=== PATIENT | female | born 1995 | race Caucasian/White ===

== ENCOUNTER 2022-07-02 19:06 | Emergency (ER) | payer OTHER, SELFPAY ==
--- NOTE | ~2022-07-02 | US_ITS ---
EXAMINATION: US OBSTETRICAL ULTRASOUND CLINICAL INFORMATION: Abdominal pain, positive beta hCG COMPARISON: None. LMP: 05/12/2022. Gestational age by maternal dates is 7 weeks 3 days. Estimated date of delivery by maternal dates is 02/16/2023. TECHNIQUE: Sonographic evaluation of the pelvis was performed transabdominally and transvaginally. FINDINGS: Uterus measures 9.1 x 5.1 x 5.2 cm. There is an anechoic focus along the endometrium measuring 1.2 x 0.4 x 0.8 cm which may represent a gestational sac, though no internal yolk sac or pole is seen at this time which could be due to the early phase of . If this does represent a gestational sac, mean sac diameter is 0.8 cm which corresponds to gestational age of 5 weeks 3 days (estimated date of delivery 03/02/2023). There is an adjacent small fluid collection measuring up to 0.4 cm which may indicate perigestational hemorrhage. The right ovary measures 3.8 x 1.8 x 2.4 cm and appears unremarkable. The left ovary measures 4.0 x 2.1 x 2.5 cm and contains a probable complex cyst measuring up to 2.0 cm, favoring a corpus luteal cyst. Doppler evaluation demonstrates normal-appearing arterial and venous waveforms in both ovaries. No adnexal mass is seen. Trace free fluid is noted. US/US OB <= 14 weeks fetus IMPRESSION: 1. Anechoic intrauterine focus which may represent a gestational sac, though no internal yolk sac or pole is seen at this time. Mean diameter corresponds to gestational age of 5 weeks 3 days. Short-term sonographic follow-up is recommended to assess for development of a pole. 2. Adjacent small fluid collection measuring up to 0.4 cm which may indicate perigestational hemorrhage. Attention on follow-up recommended. 3. No adnexal mass identified. 4. Trace nonspecific pelvic free fluid.
--- NOTE | ~2022-07-02 | US_ITS ---
EXAMINATION: US OBSTETRICAL ULTRASOUND CLINICAL INFORMATION: Abdominal pain, positive beta hCG COMPARISON: None. LMP: 05/12/2022. Gestational age by maternal dates is 7 weeks 3 days. Estimated date of delivery by maternal dates is 02/16/2023. TECHNIQUE: Sonographic evaluation of the pelvis was performed transabdominally and transvaginally. FINDINGS: Uterus measures 9.1 x 5.1 x 5.2 cm. There is an anechoic focus along the endometrium measuring 1.2 x 0.4 x 0.8 cm which may represent a gestational sac, though no internal yolk sac or pole is seen at this time which could be due to the early phase of . If this does represent a gestational sac, mean sac diameter is 0.8 cm which corresponds to gestational age of 5 weeks 3 days (estimated date of delivery 03/02/2023). There is an adjacent small fluid collection measuring up to 0.4 cm which may indicate perigestational hemorrhage. The right ovary measures 3.8 x 1.8 x 2.4 cm and appears unremarkable. The left ovary measures 4.0 x 2.1 x 2.5 cm and contains a probable complex cyst measuring up to 2.0 cm, favoring a corpus luteal cyst. Doppler evaluation demonstrates normal-appearing arterial and venous waveforms in both ovaries. No adnexal mass is seen. Trace free fluid is noted. US/US OB transvaginal IMPRESSION: 1. Anechoic intrauterine focus which may represent a gestational sac, though no internal yolk sac or pole is seen at this time. Mean diameter corresponds to gestational age of 5 weeks 3 days. Short-term sonographic follow-up is recommended to assess for development of a pole. 2. Adjacent small fluid collection measuring up to 0.4 cm which may indicate perigestational hemorrhage. Attention on follow-up recommended. 3. No adnexal mass identified. 4. Trace nonspecific pelvic free fluid.
[2022-07-02 19:10] VITALS: BP 100/48; BP 115/55; PULSE 62; PULSE 68; RESP 22; TEMP 36.6; O2SAT 100; BMI 18.2
[2022-07-02 19:32] LABS: MANUAL DIFF FLAG NO
[2022-07-02 19:36] LABS: Basophils Percent Auto 0.4 % (0-2); Eosinophils Percent Auto 0.1 % (0-4); Hematocrit 36.1 % (37.0-47.0); Hemoglobin 12.4 g/dl (12.0-16.0); Imm Gran Abs Auto 0.04 X10*3/uL (0.00-0.03); Imm Gran Pct Auto 0.4 % (0.0-0.4); Lymphocytes Absolute Auto 2.2 X10*3/uL (1.2-4.9); Lymphocytes Percent Auto 23.5 % (20-40); Mean Corpuscular HGB Conc 34.3 g/dl (31.0-35.0); Mean Corpuscular Hemoglobin 30.3 pg (27.0-33.0); Mean Corpuscular Volume 88.3 fL (80.0-98.0); Mean Platelet Volume 9.8 fL (9.4-12.3); Monocytes Absolute Auto 0.6 X10*3/uL (0.1-1.2); Neutrophils Absolute Auto 6.6 x10*3/uL (2.0-8.3); Neutrophils Percent Auto 69.6 % (45-73); Platelet Count 344 X10*3/uL (160-400); Red Blood Count 4.09 X10*6/uL (4.20-5.50); Red Cell Distribution Width 12.3 % (11.0-16.0); White Blood Count 9.5 X10*3/uL (4.8-10.8)
[2022-07-02 19:49] VITALS: BP 103/52; PULSE 44; RESP 15; O2SAT 97
[2022-07-02 20:03] LABS: Alanine Aminotransferase 19 U/L (0-31); Albumin Level 4.7 g/dL (3.5-5.0); Alkaline Phosphatase 50 U/L (39-117); Anion Gap 17 (12-20); Aspartate Amino Transferase 34 U/L (5-31); Bilirubin Direct 0.4 mg/dL (0.0-0.5); Bilirubin Total 2.6 mg/dL (0.0-1.0); Blood Urea Nitrogen 11 mg/dL (9-16); Calcium 10.1 mg/dL (8.4-10.2); Carbon Dioxide 19 mmol/L (22-29); Chloride 105 mmol/L (96-108); Creatinine Clr Calc Pharmacy 88.7; Estimated Glomerular Filt Rate > 60; Glucose Random 149 mg/dL (60-115); Potassium 4.4 mmol/L (3.3-5.1); Sodium 137 mmol/L (135-145); Total Protein 7.9 g/dL (6.5-8.0)
[2022-07-02 20:17] VITALS: BP 107/66; PULSE 43; RESP 17; O2SAT 99
--- NOTE | 2022-07-02 20:31 | PC.NURSE ---
late entry: Pt BIBA, actively vomiting very small amounts of brown mucous like liquid. Pt changed over into hospital gown, placed on monitor (pt bradycardic in 40s-50s), EKG completed (MD Randa manzano). This RN placed 20g IV in RAC and began 1L NS due to pts blood pressure being low 100s/50s. aware at this time. Pt no longer vomiting, preliminary blood work completed at this time
[2022-07-02 20:43] VITALS: PULSE 49
--- NOTE | 2022-07-02 21:21 | ED_ITS ---
HPI - Nausea/Vomiting/Diarrhea General Chief complaint: Nausea/Vomiting/Diarrhea Stated complaint: N/V/D SINCE T-1 PER EMS Time Seen by Provider: 07/02/22 21:09 Source: patient Mode of arrival: EMS Limitations: no limitations History of Present Illness HPI Narrative: 26-year-old female who presents emergency department for evaluation of nausea vomiting abdominal pain diarrhea. Patient states that she became ill this morning at 08:00 hours. She states she developed nausea and vomited at least 7- 8 times throughout the day. She also developed abdominal pain. She points to her epigastric area when asked to localize the pain. She describes the pain is a squeezing sensation which is constant and 8/10 at its worst. She states she has also developed for diarrheal stools. There was no blood in the emesis or the diarrhea. The patient denied fever but states she had shaking chills. She denied rhinorrhea, sore throat, cough, chest pain, shortness of breath. Patient states this is her 1st episode of these symptoms. Patient does smoke marijuana multiple times a day but has not had any episodes of cyclic vomiting syndrome. Related Data Previous Rx's Medication Instructions Recorded promethazine 25 mg rectal 25 mg NV Q6H PRN nausea and 07/03/22 suppository (Promethegan) vomiting #20 ea Allergies Allergy/AdvReac Type Severity Reaction Status Date / Time No Known Allergies Allergy Verified 07/02/22 20:39 Review of Systems Review of Systems: Yes all other systems are reviewed and are negative [facility] Past Medical History [facility] Narrative: Past medical history: None. Past surgical history: None social history: She denies tobacco use. She denies alcohol use. She smokes marijuana multiple times daily. Social History Social History Alcohol intake: current Alcohol intake frequency: holidays/special occasions only Smoked in Last 30 Days: No Use of substances other than those prescribed or required for medical reasons: Yes Substance Use Type: Marijuana Substance Use Frequency: Weekly Substance Use Frequency Other:: 1 day ago Last Used Substance: Days (ago) Any prior treatment program specific to substance use: No Advance Directives: No Advance Directives Information Provided: Yes Patient : No Physical Exam Vital Signs: Vital Signs: Last Vital Signs Temp 98.4 F 07/02/22 22:00 Pulse 67 07/02/22 23:38 Resp 16 07/02/22 23:38 BP 99/49 L 07/02/22 23:38 Pulse Ox 99 07/02/22 23:38 O2 Del Method 07/02/22 23:38 BMI result Body Mass Index 18.2 Const: Other: Awake, alert, female patient, she appears to be in distress secondary to her nausea, she is dry heaving, she also appears to be in distress secondary to her abdominal pain HEENT: Head: Yes normal to inspection, Yes normocephalic and Yes atraumatic Ears: external ears normal General nose exam: Normal external nose present Face and sinus: Yes normal facial exam Mouth: Normal oral and palatal mucosa present Throat: Yes posterior oropharynx normal Eyes: General: appearance normal, both eyes and all related structures Pupils: Equal, round and reactive pupils present Neck: Neck: Yes normal visual inspection, Yes no lymphadenopathy, Yes trachea midline and Yes supple Chest: Chest palpation & inspection: normal inspection of the chest and normal palpation of entire chest wall Resp: Effort & Inspection: normal respiratory effort and able to speak in complete sentences Auscultation: clear to auscultation bilaterally Cardio: Rate: regular rate Rhythm: regular rhythm Heart sounds: S1 normal heart sound present, S2 normal heart sound present and no murmurs GI: Other: Patient has [id number]-gmpeltdy epigastric tenderness, normoactive bowel sounds, no rebound : General: Yes no CVA tenderness Back/Spine/Pelvis: Back: no CVA tenderness Skin: General skin exam: no rashes or lesions noted Neuro: Cranial nerves: Yes CN's II-XII intact bilaterally and Yes Equal, round and reactive pupils present Cognition (Neuro): normal cognition Motor exam (neuro): 5/5 motor strength present throughout Extrem: General: Yes normal to inspection Psych: Appearance: grossly normal Speech and movement: Normal speech and movement present Attitude: cooperative Medications Administered Discontinued Medications Generic Name Dose Route Start Last Admin Trade Name Freq PRN Reason Stop Dose Admin Diphenhydramine HCl 50 mg 07/02/22 21:21 07/02/22 21:41 Diphenhydramine Hcl 50 Mg/Ml Vial IVPUSH 07/02/22 21:22 50 mg ONCE STA Administration Sodium Chloride 1,000 mls @ 999 mls/hr 07/02/22 21:21 07/02/22 22:53 Ns IV 07/02/22 22:21 Infused .Q1H1M STA Infusion Lactated Ringer's 1,000 mls @ 999 mls/hr 07/02/22 23:45 07/03/22 00:46 Lr IV 07/03/22 00:45 Infused .Q1H1M DORIS Infusion Ketorolac Tromethamine 15 mg 07/02/22 21:21 07/02/22 21:41 Ketorolac Tromethamine 15 Mg/Ml Vial IVPUSH 07/02/22 21:22 15 mg ONCE STA Administration Metoclopramide HCl 10 mg 07/02/22 21:21 07/02/22 21:41 Metoclopramide Hcl 10 Mg/2 Ml Vial IVPUSH 07/02/22 21:22 10 mg ONCE STA Administration Medical Decision Making Medical Decision Making MDM Narrative: 26-year-old female who presents emergency department for evaluation of nausea, vomiting, diarrhea and abdominal pain which started this morning. The patient he states she does smoke marijuana multiple times daily but she has never had any episodes of cyclic vomiting syndrome. Review of systems was positive for chills but no other symptoms. On presentation she does appear to be in distress secondary to her nausea, dry heaves and abdominal discomfort. Vital signs initially did reveal an elevated respiratory rate of 22. Laboratory evaluation was ordered to include CBC, BMP, liver panel, urinalysis, urine , COVID, flu, RSV. Patient was treated with normal saline IV x2 L, Reglan 10 mg IV and Benadryl 50 mg IV. 2127: My independent interpretation patient's laboratory evaluation as follows. CBC was normal. CO2 was low 19, glucose elevated 149, total bilirubin is elevated at 2.6, direct bilirubin is only 0.4 suggesting this is not caused by biliary obstruction lipase is pending. COVID-19, RSV and influenza pending. Urinalysis/urine pending collection. 2359: Urine was positive, urinalysis was unremarkable. The patient's quantitative beta-hCG came back at 22,466. This makes the patient a with a 5-year-old child, her last menstrual period was 05/12/[address] her gestation age at 7 weeks and 2 days. Patient is feeling significantly better after the above treatment, she has no significant abdominal tenderness however given the amount of abdominal pain she was experiencing earlier I will order OB ultrasound less than 14 weeks and vaginal ultrasound. Patient's blood type is O-positive. 0122: The patient's ultrasound revealed a yolk sac with a gestational age of 5 weeks and 3 days which is less than predicted based on her LMP. The radiologist did adjacent small fluid collection measuring 0.4 cm which may indicate pre gestational hemorrhage. I did discuss these findings with the patient. Patient initially did get some improvement with the above treatment but her nausea came back and she was ordered to get a Phenergan suppository 25 mg per rectum . She will be discharged home with a prescription Phenergan suppositories 25 mg p.r. q.6 hours as needed. Differential Diagnosis Differential diagnosis includes but is not limited to cyclic vomiting syndrome, gastroenteritis, , ectopic , ovarian cyst ovarian torsion Lab Data [facility] Lab Attestation statement: I reviewed the patient's lab results. Please see [facility] for discussion 07/02/22 19:28 07/02/22 19:28 Labs: Lab Results 07/02/22 07/02/22 07/02/22 Range/Units 19:28 19:28 21:16 WBC 9.5 (4.8-10.8) X10*3/uL RBC 4.09 L (4.20-5.50) X10*6/uL Hgb 12.4 (12.0-16.0) g/dl Hct 36.1 L (37.0-47.0) % MCV 88.3 (80.0-98.0) fL MCH 30.3 (27.0-33.0) pg MCHC 34.3 (31.0-35.0) g/dl RDW 12.3 (11.0-16.0) % Plt Count 344 (160-400) X10*3/uL MPV 9.8 (9.4-12.3) fL Immature Gran % (Auto) 0.4 (0.0-0.4) % Neut % (Auto) 69.6 (45-73) % Lymph % (Auto) 23.5 (20-40) % [place] % (Auto) 6.0 (2-11) % Eos % (Auto) 0.1 (0-4) % Baso % (Auto) 0.4 (0-2) % Lymph # (Auto) 2.2 (1.2-4.9) X10*3/uL [place] # (Auto) 0.6 (0.1-1.2) X10*3/uL Eos # (Auto) 0.0 (0.0-0.4) X10*3/uL Baso # (Auto) 0.0 (0.0-0.2) X10*3/uL Abs Immat Gran (auto) 0.04 H (0.00-0.03) X10*3/uL Absolute Neuts (auto) 6.6 (2.0-8.3) x10*3/uL Absolute Nucleated RBC 0.000 (0.0-0.012) X10*3/uL Nucleated RBC % (auto) 0.0 (0.0-0.2) /100WBC Sodium 137 (135-145) mmol/L Potassium 4.4 (3.3-5.1) mmol/L Chloride 105 (96-108) mmol/L Carbon Dioxide 19 L (22-29) mmol/L Anion Gap 17 (12-20) BUN 11 (9-16) mg/dL Creatinine 0.71 (0.5-1.4) mg/dL Estim Creat Clear Calc 88.7 Estimated GFR > 60 Random Glucose 149 H (60-115) mg/dL Calcium 10.1 (8.4-10.2) mg/dL Total Bilirubin 2.6 H (0.0-1.0) mg/dL Direct Bilirubin 0.4 (0.0-0.5) mg/dL AST 34 H (5-31) U/L ALT 19 (0-31) U/L Alkaline Phosphatase 50 (39-117) U/L Total Protein 7.9 (6.5-8.0) g/dL Albumin 4.7 (3.5-5.0) g/dL Lipase 12 (8-78) U/L Beta HCG, Quant 61644 mIU/mL Urine Color Urine Appearance Urine pH (5.0-9.0) Ur Specific [place] (1.005-1.025) Urine Protein (Neg-Trace) mg/dL Urine Glucose (UA) (Negative) mg/dL Urine Ketones (Negative) mg/dL Urine Blood (Negative) Urine Nitrite (Negative) Ur Leukocyte Esterase (Negative) Urine RBC (0-2) /HPF Urine WBC (0-5) /HPF Ur Squamous Epith Cells (0-2) /HPF Urine Bacteria (None Seen) Hyaline Casts (0-2) /LPF Urine Test POSITIVE H (NEGATIVE) Influenza Type A (PCR) (Negative) Influenza Type B (PCR) (Negative) RSV RNA Qual (PCR) (Negative) SARS-CoV-2 RNA (RT-PCR) (Negative) Blood Type 07/02/22 07/02/22 07/02/22 Range/Units 21:16 21:50 22:16 WBC (4.8-10.8) X10*3/uL RBC (4.20-5.50) X10*6/uL Hgb (12.0-16.0) g/dl Hct (37.0-47.0) % MCV (80.0-98.0) fL MCH (27.0-33.0) pg MCHC (31.0-35.0) g/dl RDW (11.0-16.0) % Plt Count (160-400) X10*3/uL MPV (9.4-12.3) fL Immature Gran % (Auto) (0.0-0.4) % Neut % (Auto) (45-73) % Lymph % (Auto) (20-40) % [place] % (Auto) (2-11) % Eos % (Auto) (0-4) % Baso % (Auto) (0-2) % Lymph # (Auto) (1.2-4.9) X10*3/uL [place] # (Auto) (0.1-1.2) X10*3/uL Eos # (Auto) (0.0-0.4) X10*3/uL Baso # (Auto) (0.0-0.2) X10*3/uL Abs Immat Gran (auto) (0.00-0.03) X10*3/uL Absolute Neuts (auto) (2.0-8.3) x10*3/uL Absolute Nucleated RBC (0.0-0.012) X10*3/uL Nucleated RBC % (auto) (0.0-0.2) /100WBC Sodium (135-145) mmol/L Potassium (3.3-5.1) mmol/L Chloride (96-108) mmol/L Carbon Dioxide (22-29) mmol/L Anion Gap (12-20) BUN (9-16) mg/dL Creatinine (0.5-1.4) mg/dL Estim Creat Clear Calc Estimated GFR Random Glucose (60-115) mg/dL Calcium (8.4-10.2) mg/dL Total Bilirubin (0.0-1.0) mg/dL Direct Bilirubin (0.0-0.5) mg/dL AST (5-31) U/L ALT (0-31) U/L Alkaline Phosphatase (39-117) U/L Total Protein (6.5-8.0) g/dL Albumin (3.5-5.0) g/dL Lipase (8-78) U/L Beta HCG, Quant mIU/mL Urine Color Yellow Urine Appearance Clear Urine pH 6.0 (5.0-9.0) Ur Specific [place] >= 1.030 H (1.005-1.025) Urine Protein 30 (1+) H (Neg-Trace) mg/dL Urine Glucose (UA) Negative (Negative) mg/dL Urine Ketones >=160 (Negative) mg/dL Urine Blood Negative (Negative) Urine Nitrite Negative (Negative) Ur Leukocyte Esterase Negative (Negative) Urine RBC 0-2 (0-2) /HPF Urine WBC 0-5 (0-5) /HPF Ur Squamous Epith Cells 3-5 (0-2) /HPF Urine Bacteria Trace (None Seen) Hyaline Casts 0-2 (0-2) /LPF Urine Test (NEGATIVE) Influenza Type A (PCR) NEGATIVE (Negative) Influenza Type B (PCR) NEGATIVE (Negative) RSV RNA Qual (PCR) NEGATIVE (Negative) SARS-CoV-2 RNA (RT-PCR) NEGATIVE (Negative) Blood Type O Positive Radiology Impression Discussion of test interpretation with radiology: I have reviewed the radiologist's reading. Radiologist Impression: US OB transvaginal IMPRESSION: 1.? Anechoic intrauterine focus which may represent a gestational sac, though no internal yolk sac or pole is seen at this time. Mean diameter corresponds to gestational age of 5 weeks 3 days. Short-term sonographic follow-up is recommended to assess for development of a pole. 2.? Adjacent small fluid collection measuring up to 0.4 cm which may indicate perigestational hemorrhage. Attention on follow-up recommended. 3.? No adnexal mass identified. 4.? Trace nonspecific pelvic free fluid. Dictated By: Julio Godoy MD Signed By: <Electronically signed by Julio Godoy MD in [place] 07/03/22 0115 Discharge Plan Discharge Clinical Impression: Intrauterine , Abdominal pain affecting , Vomiting, Acute dehydration Patient Disposition: Home, Self-Care Instructions: Threatened Miscarriage (ED), Abdominal Pain in (ED) Additional Instructions: Your urine test was positive. Your blood test (quantitative beta-hCG) was positive at 22,466. The ultrasound revealed a single in the uterus measuring 5 weeks and 3 days which is slightly smaller than the predicted 7 weeks and 2 days based on y our last menstrual period of 05/12/2022. There was small amount of blood noted around the which could be normal or could represent an early miscarriage. For nausea and vomiting use Phenergan (promethazine) suppositories 25 mg, 1 inserted in your rectum every 6 hours as needed. Take Tylenol (acetaminophen) 500 mg pills, 2 pills every 4 to 6 hours as needed for pain. Follow-up with our on-call OBGYN in 1 week. Prescriptions: New promethazine [Promethegan] 25 mg suppository 25 mg NV Q6H PRN (Reason: nausea and vomiting) Qty: 20 0RF Referrals: Kristopher Crabtree MD [Physician] - 1 week (Abdominal pain, single intrauterine 5 weeks 3 days, small amount of pre gestational hemorrhage, , LMP 05/12/2022)
[2022-07-02 21:29] LABS: Appearance Urine Clear; Color Urine Yellow; Glucose Urine UA Negative (Negative); Leukocyte Esterase Urine Negative (Negative); Nitrite Urine Negative (Negative); Specific Gravity - Urine >= 1.030 (1.005-1.025); UMIC TRIGGER UACC YES; Urine Blood Negative (Negative); Urine Ketones >=160 mg/dL (Negative); Urine Protein 30 (1+) mg/dL (Neg-Trace)
[2022-07-02 21:31] LABS: Bacteria Urine Trace (None Seen); Hyaline Casts Urine 0-2 /LPF (0-2); RBC Urine 0-2 /HPF (0-2); UPreg QC Valid YES; Urine Pregnancy POSITIVE (NEGATIVE); WBC Urine 0-5 /HPF (0-5)
[2022-07-02 21:36] LABS: Lipase 12 U/L (8-78)
[2022-07-02] MEDS: Ketorolac Tromethamine 15 MG/ML VIAL IVPUSH (21:41)
[2022-07-02] MEDS: diphenhydrAMINE HCL 50 MG/ML VIAL IVPUSH (21:41)
[2022-07-02] MEDS: 0.9 % Sodium Chloride 1,000 ML 999 ML IV (21:41)
[2022-07-02] MEDS: Metoclopramide HCl 10 MG/2 ML VIAL IVPUSH (21:41)
--- NOTE | 2022-07-02 21:57 | PC.NURSE ---
pt resting on stretcher, appears uncomfortably, states 10/10 abdominal pain still, all medications administered per JUL. Pt voiding with no difficulty at this time. Awaiting lab results
[2022-07-02 22:00] VITALS: BP 111/63; PULSE 62; RESP 16; TEMP 36.9; O2SAT 97
[2022-07-02 22:34] LABS: Influenza A PCR NEGATIVE (Negative); Influenza B PCR NEGATIVE (Negative); Resp Syncy Virus RNA Qual PCR NEGATIVE (Negative); SARS COV2 PCR INHOUSE NEGATIVE (Negative)
[2022-07-02 23:38] VITALS: BP 99/49; PULSE 67; RESP 16; O2SAT 99
[2022-07-02] MEDS: Lactated Ringers 1,000 ML 999 ML IV (23:38)
--- NOTE | 2022-07-02 23:40 | PC.NURSE ---
pt had episode of low BP, Md aware. Verbal order for 1L LR over 1 hour. Pt asymptomatic at this time
[2022-07-02 23:52] LABS: HCG Quantitative 22466 mIU/mL
--- OUTSIDE RECORDS SUMMARY | 2022-07-03 01:36 | XMS_ITS | Continuity of Care Document ---
:1995 Author Organization [facility] Adult Address [address] [place] [address]- Care Team Providers Name Role Phone Matt CHU, Faith Primary Care Physician Encounter [facility] Date(s): 07/18/20 - 10/26/20 [facility] Adult [address] [place] [phone]- Attending Physician: Faith Gutierrez MD Allergies, Adverse Reactions, Alerts No Known Medication Allergies Social History Social History Type Response Smoking Status Never (less than 100 in life time) entered on: 02/25/19 Sex
--- OUTSIDE RECORDS SUMMARY | 2022-07-03 01:37 | XMS_ITS | Continuity of Care Document ---
:1995 Author Organization [facility] Adult Address [address] [place] [id number]- Care Team Providers Name Role Phone Faith Gutierrez MD Primary Care Physician Encounter [facility] Date(s): 11/28/21 - 12/28/21 [facility] Adult [address] [place] [phone]- Allergies, Adverse Reactions, Alerts No Known Medication Allergies Social History Social History Type Response Smoking Status Never (less than 100 in life time) entered on: 02/25/19 Sex
--- OUTSIDE RECORDS SUMMARY | 2022-07-03 01:37 | XMS_ITS | Continuity of Care Document ---
:1995 Author Organization [facility] Adult Address [address] [place] [id number]- Care Team Providers Name Role Phone Faith Gutierrez MD Primary Care Physician Encounter [facility] Date(s): 11/16/20 - 12/16/20 [facility] Adult [address] [place] [address]- Attending Physician: Vira Fairchild Admitting Physician: Vira Fairchild Referring Physician: Admtr, ArJose L Allergies, Adverse Reactions, Alerts No Known Medication Allergies Social History Social History Type Response Smoking Status Never (less than 100 in life time) entered on: 02/25/19 Sex
--- OUTSIDE RECORDS SUMMARY | 2022-07-03 01:37 | XMS_ITS | Continuity of Care Document ---
:1995 Author Organization [facility] Adult Address [address] [place] [phone]- Care Team Providers Name Role Phone Faith Gutierrez MD Primary Care Physician Encounter [facility] Date(s): 11/19/21 - 12/19/21 [facility] Adult [address] [place] [phone]- Allergies, Adverse Reactions, Alerts No Known Medication Allergies Social History Social History Type Response Smoking Status Never (less than 100 in life time) entered on: 02/25/19 Sex
--- OUTSIDE RECORDS SUMMARY | 2022-07-03 01:37 | XMS_ITS | Continuity of Care Document ---
:1995 Author Organization [facility] Adult Address [address] [place] [phone]- Care Team Providers Name Role Phone Matt CHU, Faith Primary Care Physician Encounter [facility] Date(s): 11/22/21 - 12/22/21 [facility] Adult [address] [place] [phone]- Allergies, Adverse Reactions, Alerts No Known Medication Allergies Social History Social History Type Response Smoking Status Never (less than 100 in life time) entered on: 02/25/19 Sex
--- OUTSIDE RECORDS SUMMARY | 2022-07-03 01:37 | XMS_ITS | Continuity of Care Document ---
:[address] [facility] Adult Address [address] [place] [address]- Care Team Providers Name Role Phone [facility] Primary Care Physician Encounter [facility] Date(s): 04/25/21 - 05/27/21 [facility] Adult [address] [place] [address]- Attending Physician: Radha Jeffrey MD Allergies, Adverse Reactions, Alerts No Known Medication Allergies Social History Social History Type Response Smoking Status Never (less than 100 in life time) entered on: 02/25/19 Sex
--- OUTSIDE RECORDS SUMMARY | 2022-07-03 01:37 | XMS_ITS | Continuity of Care Document ---
:1995 Author Organization [facility] Adult Address [address] [place] [phone]- Care Team Providers Name Role Phone Faith Gutierrez MD Primary Care Physician Encounter [facility] Date(s): 11/19/21 - 12/19/21 [facility] Adult [address] [place] [phone]- Allergies, Adverse Reactions, Alerts No Known Medication Allergies Social History Social History Type Response Smoking Status Never (less than 100 in life time) entered on: 02/25/19 Sex
--- OUTSIDE RECORDS SUMMARY | 2022-07-03 01:37 | XMS_ITS | Continuity of Care Document ---
:1995 Author Organization [facility] Adult Address [address] [place] [address]- Care Team Providers Name Role Phone Matt CHU, Faith Primary Care Physician Encounter [facility] Date(s): 09/26/20 - 10/26/20 [facility] Adult [address] [place] [phone]- Attending Physician: Vira aFirchild Admitting Physician: Vira Fairchild Referring Physician: Admtr Ar8 Allergies, Adverse Reactions, Alerts No Known Medication Allergies Social History Social History Type Response Smoking Status Never (less than 100 in life time) entered on: 02/25/19 Sex
--- OUTSIDE RECORDS SUMMARY | 2022-07-03 01:37 | XMS_ITS | Continuity of Care Document ---
:1995 Author Organization [facility] Adult Address [address] [place] [address]- Care Team Providers Name Role Phone Faith Gutierrez MD Primary Care Physician Encounter [facility] Date(s): 11/16/20 - 11/23/20 [facility] Adult [address] [place] [address]- Attending Physician: Faith Gutierrez MD Allergies, Adverse Reactions, Alerts No Known Medication Allergies Vital Signs Most recent to oldest [Reference Range]: 1 Height 165.4 cm (11/16/20 2:12 PM) Social History Social History Type Response Smoking Status Never (less than 100 in life time) entered on: 02/25/19 Sex
--- OUTSIDE RECORDS SUMMARY | 2022-07-03 01:37 | XMS_ITS | Continuity of Care Document ---
:1995 Author Organization [facility] Address [address] [place] [address]- Care Team Providers Name Role Phone Matt CHU, Faith Primary Care Physician Encounter [facility] Date(s): 07/17/20 - 07/24/20 [facility] [address] [place] [id number]- Encounter Diagnosis Anxiety (Discharge Diagnosis) - 07/17/20 Attending Physician: Faith Gutierrez MD Allergies, Adverse Reactions, Alerts No Known Medication Allergies Problem List Diagnosis Diagnosis Type Effective Dates Health Status Clinical Serv ice Informant Anxiety Discharge 07/17/20 Diagnosis Vital Signs Most recent to oldest [Reference Range]: 1 Height 165.4 cm (07/17/20 3:33 PM) Social History Social History Type Response Smoking Status Never (less than 100 in life time) entered on: 02/25/19 Sex
--- OUTSIDE RECORDS SUMMARY | 2022-07-03 01:37 | XMS_ITS | Continuity of Care Document ---
:1995 Author Organization [facility] Address [address] [place] [address]- Care Team Providers Name Role Phone Faith Gutierrez MD Primary Care Physician Encounter [facility] Date(s): 04/27/21 - 05/27/21 [facility] [address] [place] [address]- Attending Physician: Vira Fairchild Admitting Physician: Vira Fairchild Referring Physician: Admtr, ArJose L Allergies, Adverse Reactions, Alerts No Known Medication Allergies Social History Social History Type Response Smoking Status Never (less than 100 in life time) entered on: 02/25/19 Sex
--- OUTSIDE RECORDS SUMMARY | 2022-07-03 01:37 | XMS_ITS | Continuity of Care Document ---
:1995 Author Organization [facility] Address [address] [place] [id number]- Care Team Providers Name Role Phone Matt CHU, Faith Primary Care Physician Encounter [facility] Date(s): 11/28/21 - 12/28/21 [facility] [address] [place] [id number]- Allergies, Adverse Reactions, Alerts No Known Medication Allergies Social History Social History Type Response Smoking Status Never (less than 100 in life time) entered on: 02/25/19 Sex
== END 2022-07-03 02:17 | disposition home or self-care (01) ==
PROVIDERS: Emergency Provider Emergency Medicine Emergency Medical Services; PCP Internal Medicine
DX: O26.91 Pregnancy related conditions, unspecified, first trimester (principal); Z3A.01 Less than 8 weeks gestation of pregnancy; R11.2 Nausea with vomiting, unspecified; Z20.822 Contact with and (suspected) exposure to COVID-19; Z20.828 Contact with and (suspected) exposure to other viral communicable diseases; Z79.899 Other long term (current) drug therapy
CPT/HCPCS: 0241U; 36415; 76801; 76817; 80053; 81001; 81025; 82248; 83690; 84702; 85025; 86900; 86901; 93005; 96361; 96374; 96375; 99284; 99285; J1200; J1885; J2765

== ENCOUNTER 2022-07-04 10:16 | Emergency (ER) | payer OTHER, SELFPAY ==
--- NOTE | ~2022-07-04 | US_ITS ---
EXAMINATION: US OBSTETRICAL ULTRASOUND CLINICAL INFORMATION: Abdominal pain COMPARISON: July 03, 2022. LMP: May 12, 2022. Gestational age by maternal dates is 7 weeks 4 days. Estimated date of delivery by maternal dates is FEBRUARY 16, 2023. TECHNIQUE: OB ultrasound FINDINGS: There is a single intrauterine gestational sac with visible yolk sac. No pole is seen. No heart rate is detected. There is no significant subchorionic hemorrhage or hematoma. Gestational age by ultrasound: 6 weeks 1 day MERY (estimated date of delivery): February 26, 2023 +/- 4 days. MATERNAL ADNEXA: The right maternal ovary measures 3.6 x 1.5 x 3.2 cm. No adnexal abnormality appreciated. The left maternal ovary measures 5.1 x 2.3 x 4.4 cm. Corpus luteum is seen measuring 1.8 x 1.4 x 1.6 cm in size. There is trace fluid adjacent to the gestational sac. There is trace fluid seen within the cul-de-sac. US/US OB pelvic and transvaginal IMPRESSION: 1. Single intrauterine gestation with ultrasound gestational age of 6 weeks 1 day +/- 4 days. 2. Estimated date of delivery is February 26, 2023 +/- 4 days. 3. No maternal adnexal mass or pelvic ascites. No pole or heart rate identified.
--- NOTE | ~2022-07-04 | US_ITS ---
EXAMINATION: US ABDOMEN LIMITED CLINICAL INFORMATION: Gallbladder and liver pain. COMPARISON: None TECHNIQUE: Real-time imaging of the right upper quadrant abdominal viscera. FINDINGS: PANCREAS: Unremarkable. No abnormal pancreatic mass or peripancreatic inflammatory change. LIVER: Normal. The liver is normal in size. The liver contour is normal. Parenchymal echogenicity is normal. No focal hepatic lesion. There is no intrahepatic biliary duct dilatation seen. GALLBLADDER: Normal. The gallbladder is physiologically distended without evidence of stones, sludge, polyps, wall thickening or pericholecystic fluid. COMMON BILE DUCT: Normal in caliber measuring 0.3 cm in diameter. RIGHT KIDNEY: Normal. No hydronephrosis. No renal calculi or focal parenchymal lesions. The kidney measures 10.5 cm in maximum dimension. FREE FLUID: None. US/US abdomen limited IMPRESSION: No significant abnormality appreciated on abdominal ultrasound right upper quadrant study.
[2022-07-04 10:32] VITALS: BP 107/67; BP 125/95; PULSE 52; PULSE 60; RESP 18; TEMP 36.6; O2SAT 100; O2SAT 99; BMI 21.2
--- NOTE | 2022-07-04 10:46 | ED_ITS ---
HPI - Female Genitourinary General Chief complaint: Urogenital-Female Stated complaint: N/V,ABD PAIN,5 WKS PREG,SEEN T-1 PER EMS Time Seen by Provider: 07/04/22 10:46 Source: patient and EMS Mode of arrival: EMS Limitations: no limitations History of Present Illness HPI Narrative: Patient is a 26 year old assigned female at with a history of current presenting to the emergency department today with abdominal pain and chest pain. Patient states that she was seen here 2 days ago for the same thing but never picked up the anti-nausea medications that were prescribed. Patient states that she has not had any vaginal bleeding or discharge. Patient describes the pain as being all over her abdomen and into her lower chest. Patient states that she has been vomiting. Patient denies any dizziness, lightheadedness, fever, chills, blurry vision, double vision, loss of vision, difficulty breathing, shortness of breath, back pain, night sweats, pain with urination, increased urinary frequency, increased urinary urgency, blood in her urine or stool, syncope or a near syncopal episode, recent trauma or falls, bowel incontinence, bladder incontinence, bowel retention, bladder retention, or any other complaints at this time. Onset (ago): day(s) (3) Severity: mild Severity scale (1-10): 3 Vaginal discharge: none Vaginal bleeding: none Exacerbating factors: none Relieving factors: none Associated symptoms: abdominal pain, nausea and vomiting Treatment prior to arrival: none Patient : Yes Related Data Previous Rx's Medication Instructions Recorded promethazine 25 mg rectal 25 mg GA Q6H PRN nausea and 07/03/22 suppository (Promethegan) vomiting #20 ea metoclopramide HCl 5 mg tablet 5 mg PO DAILY #10 tabs 07/04/22 (Reglan) Allergies Allergy/AdvReac Type Severity Reaction Status Date / Time No Known Allergies Allergy Verified 07/02/22 20:39 Review of Systems Constitutional: Constitutional: Reports no additional constitutional complaints, Denies chills, Denies fever(s) and Denies night sweats Eyes: Eyes: Reports no additional eye complaints, Denies blurry vision, Denies change in vision, Denies diplopia, Denies eye discharge, Denies loss of vision and Denies eye pain ENT: Denies dizziness Cardiovascular: Cardiovascular: Reports no additional cardiovascular complaints, Reports chest pain, Denies lightheadedness, Denies Loss of Consciousness and Denies dyspnea Respiratory: Respiratory: Reports no additional respiratory complaints and Den ies dyspnea Gastrointestinal: Gastrointestinal: Reports no additional gastrointestinal complaints, Reports abdominal pain, Denies melena, Denies hematochezia, Denies change in bowel habits, Denies change in stool character, Reports nausea and Rep orts vomiting Genitourinary: Genitourinary: Denies hematuria, Denies urinary frequency, Denies dysuria, Denies urinary incontinence, Denies urinary hesitancy and Denies urinary urgency Musculoskeletal: Musculoskeletal: Reports no additional musculoskeletal complaints, Denies numbness and Denies tingling Neurologic: Denies dizziness, Denies loss of vision, Denies numbness and Denies tingling Psychiatric: Psychiatric: Reports no additional psychiatric complaints Endocrine: Endocrine: Reports no additional endocrine complaints Hematologic/Lymphatic: Hematologic/Lymphatic: Reports no additional he matologic/lymphatic complaints Allergic/Immunologic: Allergic/Immunologic: Reports no additional allergic/immunologic complaints [facility] Past Medical History Attestation statement: The following information was validated with the patient. Source: old records reviewed and nursing notes reviewed Social History Social History Alcohol intake: current Alcohol intake frequency: holidays/special occasions only Substance Use Type: Marijuana Physical Exam Vital Signs: Vital Signs: Last Vital Signs Temp 97.9 F 07/04/22 10:32 Pulse 52 07/04/22 10:32 Resp 18 07/04/22 10:32 BP 107/67 07/04/22 10:32 Pulse Ox 99 07/04/22 10:32 BMI result Body Mass Index 21.2 Const: General: cooperative, no acute distress, alert and awake Nutritional Appearance: well nourished Orientation/consciousness: patient oriented x3 Limitations: no limitations HEENT: Head: Yes normal to inspection and Yes atraumatic Ears: hearing grossly normal bilaterally and external ears normal General nose exam: Normal external nose present, no nasal discharge noted and no epistaxis Face and sinus: Yes normal facial exam, No abrasion and No laceration Mouth: Normal oral and palatal mucosa present, no drooling and no muffled voice Eyes: General: appearance normal, both eyes and all related structures Periorbital: periorbital findings normal Eyelids: Yes eyelids normal Conjunctivae: conjunctivae normal Pupils: Equal, round and reactive pupils present EOM: EOMs intact bilaterally Neck: Neck: Yes normal visual inspection, Yes full ROM and Yes no lymphadenopathy Chest: Chest palpation & inspection: normal inspection of the chest Resp: Effort & Inspection: normal respiratory effort and able to speak in complete sentences Auscultation: clear to auscultation bilaterally GI: Inspection: Yes normal to inspection Palpation (GI): Soft to palpation, not firm, nontender, no guarding and not rigid Neuro: General: patient oriented x3 and moves all extremities Cranial nerves: Yes Equal, round and reactive pupils present Cognition (Neuro): normal cognition Motor exam (neuro): 5/5 motor strength present throughout Sensory Exam: Normal double simultaneous stimulation for sensation Coordination: [id number] test normal Extrem: General: Yes normal to inspection, Yes full ROM and Yes capillary refill normal Psych: Appearance: grossly normal Mental Status: mental status grossly normal Affect: normal affect Attitude: cooperative Thought process: Normal thought process present Thought content: Normal thought content present Insight: Good insight present (Psych) Medications Administered Discontinued Medications Generic Name Dose Route Start Last Admin Trade Name Nealq PRN Reason Stop Dose Admin Al Hydroxide/Mg Hydroxide 15 ml 07/04/22 11:56 07/04/22 13:34 Magnesium Hydrox/Alum Hydrox 30 Ml Oral.Susp PO 07/04/22 11:57 15 ml ONCE ONE Administration Metoclopramide HCl 10 mg 07/04/22 14:28 07/04/22 14:49 Metoclopramide Hcl 10 Mg/2 Ml Vial IVPUSH 07/04/22 14:29 10 mg ONCE ONE Administration Morphine Sulfate 4 mg 07/04/22 10:47 07/04/22 10:52 Morphine Sulfate 4 Mg/Ml Cartridge IVPUSH 07/04/22 10:48 4 mg ONCE ONE Administration Protocol Morphine Sulfate 4 mg 07/04/22 13:48 07/04/22 13:55 Morphine Sulfate 4 Mg/Ml Cartridge IVPUSH 07/04/22 13:49 4 mg ONCE ONE Administration Protocol Pantoprazole Sodium 40 mg 07/04/22 10:52 07/04/22 11:01 Pantoprazole Sodium 40 Mg/10 Ml Vial IVPUSH 07/04/22 10:53 40 mg ONCE ONE Administration Medical Decision Making Medical Decision Making MDM Narrative: Patient is a 26 year old assigned female at with a history of current presenting to the emergency department today with abdominal pain and epigastric pain. Patient's physical exam showed an individual that was animated while describing her abdominal pain but was otherwise unremarkable. Patient's blood work showed a hgb of 9.9 which is lower compared to her hgb on 07/02 of 9.9 this is likely attributed to a transient anemia given the patient has no signs of bleeding. Patient's LFTs were elevated as well as her bilirubin. Patient's EKG was unremarkable. Patient's abdominal US showed no acute process. Patient's transvaginal ultrasound showed single intrauterine and no bleeding. I spoke to Dr. Crabtree who came and examined the patient. He recommended discharge on anti-emetic with outpatient follow up. I explained my physical exam findings as well as all test results to the patient. I answered all questions asked by the patient. I stressed the importance of the patient taking her medication as prescribed. I stressed the importance of the patient following up with her primary care provider and an OBGYN. I stressed the importance of the patient returning to the emergency department immediately if her symptoms were to worsen or if she were to develop any dizziness, shortness of breath, difficulty breathing, chest pain, blurry vision, loss of vision, nausea, vomiting, abdominal pain, fever, chills, back pain, or any other complaints. Patient verbalized agreement and understanding with this treatment plan and discharge. Differential Diagnosis Differential Diagnoses: The differential diagnosis associated with the presentation includes abdominal pain, , vomiting, nausea Consult Healthcare Provider Management of the patient was discussed with: Microphone Operator (spoke to the OBGYN as noted in the MDM portion of this chart) Lab Data [facility] Lab Attestation statement: I reviewed the patient's lab results. 07/04/22 10:58 07/04/22 10:58 Labs: Lab Results 07/04/22 07/04/22 07/04/22 Range/Units 10:58 10:58 12:17 WBC 7.3 (4.8-10.8) X10*3/uL RBC 3.25 L D (4.20-5.50) X10*6/uL Hgb 9.9 L D (12.0-16.0) g/dl Hct 28.6 L D (37.0-47.0) % MCV 88.0 (80.0-98.0) fL MCH 30.5 (27.0-33.0) pg MCHC 34.6 (31.0-35.0) g/dl RDW 12.4 (11.0-16.0) % Plt Count 235 D (160-400) X10*3/uL MPV 10.1 (9.4-12.3) fL Immature Gran % (Auto) 0.3 (0.0-0.4) % Neut % (Auto) 78.5 H (45-73) % Lymph % (Auto) 16.6 L (20-40) % [place] % (Auto) 4.3 (2-11) % Eos % (Auto) 0.0 (0-4) % Baso % (Auto) 0.3 (0-2) % Lymph # (Auto) 1.2 (1.2-4.9) X10*3/uL [place] # (Auto) 0.3 (0.1-1.2) X10*3/uL Eos # (Auto) 0.0 (0.0-0.4) X10*3/uL Baso # (Auto) 0.0 (0.0-0.2) X10*3/uL Abs Immat Gran (auto) 0.02 (0.00-0.03) X10*3/uL Absolute Neuts (auto) 5.7 (2.0-8.3) x10*3/uL Absolute Nucleated RBC 0.000 (0.0-0.012) X10*3/uL Nucleated RBC % (auto) 0.0 (0.0-0.2) /100WBC Sodium 141 (135-145) mmol/L Potassium 3.2 L D (3.3-5.1) mmol/L Chloride 110 H (96-108) mmol/L Carbon Dioxide 16 L (22-29) mmol/L Anion Gap 18 (12-20) BUN 8 L (9-16) mg/dL Creatinine 0.58 (0.5-1.4) mg/dL Estim Creat Clear Calc 121.6 Estimated GFR > 60 Random Glucose 121 H (60-115) mg/dL Calcium 9.0 D (8.4-10.2) mg/dL Total Bilirubin 3.6 H (0.0-1.0) mg/dL AST 44 H (5-31) U/L ALT 39 H (0-31) U/L Alkaline Phosphatase 40 (39-117) U/L Total Protein 6.3 L (6.5-8.0) g/dL Albumin 3.9 (3.5-5.0) g/dL Beta HCG, Quant 37326 mIU/mL Rebeka species DNA (Negative) Chlam trachomat DNA PCR (Not Detect.) Gardnerella DNA Probe (Negative) N.gonorrhoeae DNA (PCR) (Not Detect.) Trichomonas DNA Probe (Negative) Blood Type O Positive Antibody Screen NEGATIVE 07/04/22 07/04/22 Range/Units 15:24 15:24 WBC (4.8-10.8) X10*3/uL RBC (4.20-5.50) X10*6/uL Hgb (12.0-16.0) g/dl Hct (37.0-47.0) % MCV (80.0-98.0) fL MCH (27.0-33.0) pg MCHC (31.0-35.0) g/dl RDW (11.0-16.0) % Plt Count (160-400) X10*3/uL MPV (9.4-12.3) fL Immature Gran % (Auto) (0.0-0.4) % Neut % (Auto) (45-73) % Lymph % (Auto) (20-40) % [place] % (Auto) (2-11) % Eos % (Auto) (0-4) % Baso % (Auto) (0-2) % Lymph # (Auto) (1.2-4.9) X10*3/uL [place] # (Auto) (0.1-1.2) X10*3/uL Eos # (Auto) (0.0-0.4) X10*3/uL Baso # (Auto) (0.0-0.2) X10*3/uL Abs Immat Gran (auto) (0.00-0.03) X10*3/uL Absolute Neuts (auto) (2.0-8.3) x10*3/uL Absolute Nucleated RBC (0.0-0.012) X10*3/uL Nucleated RBC % (auto) (0.0-0.2) /100WBC Sodium (135-145) mmol/L Potassium (3.3-5.1) mmol/L Chloride (96-108) mmol/L Carbon Dioxide (22-29) mmol/L Anion Gap (12-20) BUN (9-16) mg/dL Creatinine (0.5-1.4) mg/dL Estim Creat Clear Calc Estimated GFR Random Glucose (60-115) mg/dL Calcium (8.4-10.2) mg/dL Total Bilirubin (0.0-1.0) mg/dL AST (5-31) U/L ALT (0-31) U/L Alkaline Phosphatase (39-117) U/L Total Protein (6.5-8.0) g/dL Albumin (3.5-5.0) g/dL Beta HCG, Quant mIU/mL Rebeka species DNA Negative (Negative) Chlam trachomat DNA PCR NOT DETECTED (Not Detect.) Gardnerella DNA Probe Positive A (Negative) N.gonorrhoeae DNA (PCR) NOT DETECTED (Not Detect.) Trichomonas DNA Probe Negative (Negative) Blood Type Antibody Screen Independent Interpretation I performed an independent interpretation of an: EKG Interpretation: Vent. Rate: 051 BPM ? ? Atrial Rate: 051 BPM P-R Int: 116 ms? QRS Dur: 104 ms QT Int: 454 ms ? ? ? P-R-T Axes: 054 068 031 degrees QTc Int: 418 ms ? Sinus bradycardia Nonspecific T wave abnormality Abnormal ECG When compared with ECG of 02-JUL-2022 19:59, Nonspecific T wave abnormality now evident in Inferior leads T wave inversion now evident in Anterior leads DD/ 1204 Radiology Impression Radiologist Impression: My interpretation is in agreement with the radiologist's impression of these imaging studies. EXAMINATION:? US OBSTETRICAL ULTRASOUND CLINICAL INFORMATION:? Abdominal pain COMPARISON:? July 03, 2022.? LMP: May 12, 2022. Gestational age by maternal dates is 7 weeks 4 days. Estimated date of delivery by maternal dates is FEBRUARY 16, 2023. TECHNIQUE: OB ultrasound ? FINDINGS: There is a single intrauterine gestational sac with visible yolk sac. No pole is seen. No heart rate is detected. There is no significant subchorionic hemorrhage or hematoma. Gestational age by ultrasound: 6 weeks 1 day MERY (estimated date of delivery):? February 26, 2023 +/- 4 days. ? MATERNAL ADNEXA: ? ? The right maternal ovary measures 3.6 x 1.5 x 3.2 cm.? No adnexal abnormality appreciated. The left maternal ovary measures 5.1 x 2.3 x 4.4 cm.? Corpus luteum is seen measuring 1.8 x 1.4 x 1.6 cm in size. There is trace fluid adjacent to the gestational sac.? There is trace fluid seen within the cul-de-sac. US/US OB pelvic and transvaginal IMPRESSION: 1. Single intrauterine gestation with ultrasound gestational age of? 6 weeks 1 day +/- 4 days. 2. Estimated date of delivery is February 26, 2023 +/- 4 days. 3. No maternal adnexal mass or pelvic ascites. ? No pole or heart rate identified. Dictated By: Grant Peres MD Signed By: Electronically signed by Grant Peres MD 07/04/22 1445 EXAMINATION: US ABDOMEN LIMITED CLINICAL INFORMATION: Gallbladder and liver pain. COMPARISON: None TECHNIQUE: Real-time imaging of the right upper quadrant abdominal viscera. FINDINGS: PANCREAS: Unremarkable. No abnormal pancreatic mass or peripancreatic inflammatory change. LIVER: Normal. The liver is normal in size. The liver contour is normal. Parenchymal echogenicity is normal. No focal hepatic lesion. There is no intrahepatic biliary duct dilatation seen. GALLBLADDER: Normal. The gallbladder is physiologically distended without evidence of stones, sludge, polyps, wall thickening or pericholecystic fluid. COMMON BILE DUCT: Normal in caliber measuring 0.3 cm in diameter. RIGHT KIDNEY: Normal. No hydronephrosis. No renal calculi or focal parenchymal lesions. The kidney measures 10.5 cm in maximum dimension. FREE FLUID: None. US/US abdomen limited IMPRESSION: No significant abnormality appreciated on abdominal ultrasound right upper quadrant study. Dictated By: Grant Peres MD Signed By: Electronically signed by Grant Peres MD 07/04/22 1507 Independent Historian Clinical information obtained from an independent historian. History obtained from or confirmed by: EMS Discharge Plan Discharge Clinical Impression: Early stage of , Nausea and vomiting during Patient Disposition: Home, Self-Care Instructions: Nausea and Vomiting in (ED) Additional Instructions: Follow up with your primary care provider and an OBGYN. Return to the emergency department immediately if your symptoms worsen or if you develop any dizziness, shortness of breath, difficulty breathing, chest pain, blurry vision, loss of vision, nausea, vomiting, abdominal pain, fever, chills, back pain, or any other complaints. Prescriptions: New metoclopramide HCl [Reglan] 5 mg tablet 5 mg PO DAILY Qty: 10 0RF No Action promethazine [Promethegan] 25 mg suppository 25 mg GA Q6H PRN (Reason: nausea and vomiting) Qty: 20 0RF Referrals: Radha Jeffrey MD [Primary Care Provider] - Kristopher Crabtree MD [Physician] - (Call to establish and follow up with an OBGYN. ) Interventions: ED Discharge Assessment Last Done: 07/04/22 15:50 Discharge Date/Time: 07/04/22 15:50 Print Language: Khmer
[2022-07-04] MEDS: Morphine Sulfate 4 MG/ML CARTRIDGE IVPUSH ×2 (10:52→13:55)
[2022-07-04] MEDS: Pantoprazole Sodium 40 MG/10 ML VIAL IVPUSH (11:01)
[2022-07-04 11:02] LABS: MANUAL DIFF FLAG NO
[2022-07-04 11:03] LABS: Basophils Percent Auto 0.3 % (0-2); Hematocrit 28.6 % (37.0-47.0); Hemoglobin 9.9 g/dl (12.0-16.0); Imm Gran Abs Auto 0.02 X10*3/uL (0.00-0.03); Imm Gran Pct Auto 0.3 % (0.0-0.4); Lymphocytes Absolute Auto 1.2 X10*3/uL (1.2-4.9); Lymphocytes Percent Auto 16.6 % (20-40); Mean Corpuscular HGB Conc 34.6 g/dl (31.0-35.0); Mean Corpuscular Hemoglobin 30.5 pg (27.0-33.0); Mean Platelet Volume 10.1 fL (9.4-12.3); Monocytes Absolute Auto 0.3 X10*3/uL (0.1-1.2); Monocytes Percent Auto 4.3 % (2-11); Neutrophils Absolute Auto 5.7 x10*3/uL (2.0-8.3); Neutrophils Percent Auto 78.5 % (45-73); Platelet Count 235 X10*3/uL (160-400); Red Blood Count 3.25 X10*6/uL (4.20-5.50); Red Cell Distribution Width 12.4 % (11.0-16.0); White Blood Count 7.3 X10*3/uL (4.8-10.8)
[2022-07-04 11:26] LABS: Alanine Aminotransferase 39 U/L (0-31); Albumin Level 3.9 g/dL (3.5-5.0); Alkaline Phosphatase 40 U/L (39-117); Anion Gap 18 (12-20); Aspartate Amino Transferase 44 U/L (5-31); Bilirubin Total 3.6 mg/dL (0.0-1.0); Blood Urea Nitrogen 8 mg/dL (9-16); Carbon Dioxide 16 mmol/L (22-29); Chloride 110 mmol/L (96-108); Creatinine Clr Calc Pharmacy 121.6; Estimated Glomerular Filt Rate > 60; Glucose Random 121 mg/dL (60-115); Potassium 3.2 mmol/L (3.3-5.1); Sodium 141 mmol/L (135-145); Total Protein 6.3 g/dL (6.5-8.0)
[2022-07-04 11:42] LABS: HCG Quantitative 25810 mIU/mL
--- NOTE | 2022-07-04 12:05 | ECG_ITS ---
Test Reason : chest pain Blood Pressure : / mmHG Vent. Rate : 051 BPM Atrial Rate : 051 BPM P-R Int : 116 ms QRS Dur : 104 ms QT Int : 454 ms P-R-T Axes : 054 068 031 degrees QTc Int : 418 ms Sinus bradycardia Nonspecific T wave abnormality Abnormal ECG When compared with ECG of 02-JUL-2022 19:59, T wave inversion now evident in Anterior leads Referred By: Kenisha Michael Electronically Signed By:TRI HERNANDEZ
--- NOTE | 2022-07-04 12:09 | P.CONOB_ITS ---
INTERNATIONAL TRADE ANALYST - CN: HPI Data of Consult Consult date: 07/04/22 Primary Care Provider: Radha Jeffrey MD Consult Narrative Narrative: I was consulted on Rosario Parker who is a 26 year old female presenting to the emergency room complaining of epigastric pain associated with nausea and vomiting. The patient is around 6 weeks of gestation. No pelvic cramping and or bleeding. The patient presented to the emergency room 2 days ago , H&H was 12.4/36.1 and hCG was 22,466, O positive. In the emergency room today H&H is 9.9/28.6, hCG 25,810 cc:: CC: OB [facility] Social History Social History Alcohol intake: current Alcohol intake frequency: holidays/special occasions only Substance Use Type: Marijuana Advance Directives: No Advance Directives Information Provided: No Meds Allergies Allergy/AdvReac Type Severity Reaction Status Date / Time No Known Allergies Allergy Verified 07/02/22 20:39 INTERNATIONAL TRADE ANALYST Physical Exam Vitals Vital signs: Temp Pulse Resp BP Pulse Ox 97.9 F 52 18 107/67 99 07/04/22 10:32 07/04/22 10:32 07/04/22 10:32 07/04/22 10:32 07/04/22 10:32 BMI result Body Mass Index 21.2 Abdomen Auscultation/Inspection/Palpation: Soft, Non-distended and No tenderness Female Genitalia (Pelvic) Bladder/Urethra: Normal meatus Vagina: Nontender Cervix: Grossly normal Uterus: Normal size Adnexa/Parametria: Adnexal Tenderness: None, Adnexal Mass: None, Parametrial Tenderness: None and Parametrial Mass: None INTERNATIONAL TRADE ANALYST - Results Labs 07/04/22 10:58 07/04/22 10:58 Labs: Short CBC 07/04/22 Range/Units 10:58 WBC 7.3 (4.8-10.8) X10*3/uL Hgb 9.9 L D (12.0-16.0) g/dl Hct 28.6 L D (37.0-47.0) % Plt Count 235 D (160-400) X10*3/uL BMP 07/04/22 10:58 Sodium 141 Potassium 3.2 L D Chloride 110 H Carbon Dioxide 16 L BUN 8 L Creatinine 0.58 Calcium 9.0 D Liver Function 07/04/22 Range/Units 10:58 Total Bilirubin 3.6 H (0.0-1.0) mg/dL AST 44 H (5-31) U/L ALT 39 H (0-31) U/L Alkaline Phosphatase 40 (39-117) U/L Albumin 3.9 (3.5-5.0) g/dL Imaging US - abdomen: Radiologist's impression: ITS Impressions Pelvic/Transvag US 07/04/22 13:06 IMPRESSION: 1. Single intrauterine gestation with ultrasound gestational age of 6 weeks 1 day +/- 4 days. 2. Estimated date of delivery is February 26, 2023 +/- 4 days. 3. No maternal adnexal mass or pelvic ascites. No pole or heart rate identified. Assessment and Plan (1) Early stage of : Status: Acute SAB/ectopic warnings to be given to the patient, she is to come back to the emergency room in case of vaginal bleeding and or pelvic pain. vitamin 1 tablet p.o. q.d., follow-up in the office within 1-2 weeks for repeat ultrasound. (2) Nausea and vomiting during : Status: Acute Recommended to RUEL Mccarty in the emergency room the following: GC/CT, Trichomonas and BV panel taken. IV hydration, Reglan 10 mg and Pepcid 20 mg IV, check abdominal ultrasound to rule out cholelithiasis. If nausea and vomiting is improved , attempt a p.o. diet challenge, once tolerated, discharge patient home p.o. Reglan 10 mg p.o. Q 6 p.r.n. nausea and vomiting, vitamin B6 25 mg p.o. Q 8 p.r.n. nausea and vomiting, vitamin tablet p.o. q.d. and follow-up in the office within 1 week, instructions to be given to patient to come back to the emergency room in case of nausea and vomiting or persistence of her epigastric pain Time Spent With Patient Time: Total time managing care of this patient today ____ minutes.
[2022-07-04] MEDS: Magnesium Hydrox/Alum Hydrox 30 ML ORAL.SUSP 15 ML PO (13:34)
--- NOTE | 2022-07-04 13:36 | PC.NURSE ---
Patient refused maalox
[2022-07-04] MEDS: Metoclopramide HCl 10 MG/2 ML VIAL IVPUSH (14:49)
[2022-07-04 18:25] LABS: CT PCR NOT DETECTED (Not Detect.); NG PCR NOT DETECTED (Not Detect.)
[2022-07-05 11:12] LABS: BV Int Neg Control Negative (Negative); BV Int Pos Control Positive (Positive)
== END 2022-07-04 15:50 | disposition home or self-care (01) ==
PROVIDERS: Obstetrics & Gynecology; Physician Assistant Medical; Emergency Provider Emergency Medicine; PCP Internal Medicine
DX: O26.891 Other specified pregnancy related conditions, first trimester (principal); R11.2 Nausea with vomiting, unspecified; F12.90 Cannabis use, unspecified, uncomplicated; Z3A.01 Less than 8 weeks gestation of pregnancy
CPT/HCPCS: 0353U; 36415; 76705; 76801; 76817; 80053; 84702; 85025; 86850; 86900; 86901; 87480; 87510; 87660; 93005; 96374; 96375; 96376; 99283; 99284; J2270; J2765